=== PATIENT | female | born 1935 | race Caucasian/White ===

== ENCOUNTER 2023-03-01 20:29 | Emergency (ER) | payer OTHER, MEDICARE ==
[2023-03-01 20:44] VITALS: BMI 23.4
[2023-03-01 22:49] LABS: BASO % 0.6 % (0-2.0); EOS % 1.8 % (0-4.5); HEMATOCRIT 39.1 % (32.4-45.2); HEMOGLOBIN 13.2 GM/dL (10.7-15.3); LYMPH % 20.9 % (8-40); MCH 31.3 pg (25.7-33.7); MCHC 33.7 g/dl (32.0-36.0); MEAN CELL VOLUME 92.6 fl (80-96); MEAN PLT VOLUME 8.7 fl (7.5-11.1); MONO % 9.5 % (3.8-10.2); NEUT % 67.2 % (42.8-82.8); PLATELET COUNT 252 10^3/uL (134-434); RBC 4.22 M/mm3 (3.60-5.2); RDW 14.6 % (11.6-15.6); WHITE BLOOD COUNT 9.2 K/mm3 (4.0-10.0)
[2023-03-01 22:55] LABS: INR 0.92 (0.83-1.09); PROTHROMBIN TIME (PATIENT) 10.7 SEC (9.7-13.0)
[2023-03-01 22:58] LABS: ACTIVATED PTT 24.7 SECONDS (25.2-36.5)
[2023-03-01 23:11] LABS: POTASSIUM 3.8 mmol/L (3.5-5.1)
[2023-03-01 23:13] LABS: CALCIUM 9.2 mg/dL (8.5-10.1)
[2023-03-01 23:14] LABS: ALBUMIN 3.6 g/dl (3.4-5.0)
[2023-03-01 23:17] LABS: CREATININE 1.5 mg/dL (0.55-1.3)
[2023-03-01 23:19] LABS: BILIRUBIN,TOTAL 0.4 mg/dL (0.2-1); TOT PROT 7.1 g/dl (6.4-8.2)
[2023-03-01] MEDS ORDERED: SODIUM CHLORIDE 1,000 ML IV STA (23:55)
[2023-03-02 07:47] VITALS: TEMP 98.1
[2023-03-02 07:55] VITALS: BP 150/86; PULSE 89; RESP 14
[2023-03-02] MEDS ORDERED: FERROUS SO4 325 MG TABLET (FP) PO ONE (08:00)
[2023-03-02] MEDS ORDERED: lamoTRIgine 25 MG TABLET PO ONE (08:01)
[2023-03-02] MEDS ORDERED: ATENOLOL 50 MG TABLET (FP) PO ONE (08:02)
[2023-03-02] MEDS ORDERED: ATENOLOL 50 MG TABLET (FP) ONE (08:20)
[2023-03-02] MEDS ORDERED: lamoTRIgine 25 MG TABLET ONE (08:21)
[2023-03-02] MEDS ORDERED: FUROSEMIDE 20 MG TABLET (FP) PO ONE (08:26)
[2023-03-02] MEDS ORDERED: FUROSEMIDE 20 MG TABLET (FP) ONE (09:26)
[2023-03-02] MEDS ORDERED: ASPIRIN COATED 81 MG TABLET.EC PO SCH (10:00)
== END 2023-03-02 09:30 | disposition home or self-care (01) ==
LOC: JER 20:29
PROC: 3E0337Z Introduction of Electrolytic and Water Balance Substance into Peripheral Vein, Percutaneous Approach (ICD-10-PCS; principal; 2023-03-02)
DX: Z04.3 Encounter for examination and observation following other accident (principal); W18.11XA Fall from or off toilet without subsequent striking against object, initial encounter; Y93.E1 Activity, personal bathing and showering; Y92.121 Bathroom in nursing home as the place of occurrence of the external cause
CPT/HCPCS: 36415; 70450-TC; 71045-TC-FY; 72125-TC; 72170-TC-FY; 80053; 84484; 85025; 85610; 85730; 93005; 93010; 99285-25

== ENCOUNTER 2023-10-04 15:44 | Inpatient (IN) | payer OTHER, MEDICARE ==
[2023-10-04 17:25] LABS: VENOUS BASE EXCESS -6.7 mmol/L (-2-2); VENOUS O2 SATURATION 43.5 % (70-80); VENOUS PCO2 44.6 mmHg (38-52); VENOUS PH 7.264 (7.310-7.410)
[2023-10-04 17:28] LABS: HEMATOCRIT 21.2 % (32.4-45.2); MCH 30.3 pg (25.7-33.7); MEAN CELL VOLUME 97.7 fl (80-96); PLATELET COUNT 192 10^3/uL (134-434); RBC 2.17 M/mm3 (3.60-5.2); RDW 14.4 % (11.6-15.6); WHITE BLOOD COUNT 19.2 K/mm3 (4.0-10.0)
[2023-10-04] MEDS: SODIUM CHLORIDE 0.9% 500 ML INFUS.BAG IV ONE (17:30)
[2023-10-04 17:38] LABS: INR 1.03 (0.83-1.09)
[2023-10-04 17:39] LABS: HEMOGLOBIN 6.6 GM/dL (10.7-15.3)
[2023-10-04 17:41] LABS: ACTIVATED PTT 18.5 SECONDS (25.2-36.5)
[2023-10-04 18:04] LABS: POTASSIUM 4.1 mmol/L (3.5-5.1)
[2023-10-04 18:06] LABS: CALCIUM 8.5 mg/dL (8.5-10.1)
[2023-10-04 18:07] LABS: ALBUMIN 2.4 g/dl (3.4-5.0); BLOOD UREA NITROGEN 82.1 mg/dL (7-18)
[2023-10-04 18:10] LABS: CREATININE 1.8 mg/dL (0.55-1.3)
[2023-10-04 18:12] LABS: BILIRUBIN,TOTAL 0.3 mg/dL (0.2-1); TOT PROT 5.5 g/dl (6.4-8.2)
[2023-10-04 18:22] LABS: LACTIC ACID 8.2 mmol/L (0.4-2.0)
[2023-10-04 18:26] LABS: EPI CELLS 15 /uL (0-25.1); HYALINE CASTS 1 /uL (0-3.1); PH,URINE 5.5 (5.0-8.0); URINE APPEARANCE CLEAR; URINE BACTERIA >9,000 /uL (0-1359); URINE BILIRUBIN NEGATIVE (NEGATIVE); URINE COLOR YELLOW; URINE GLUCOSE (UA) NEGATIVE (NEGATIVE); URINE KETONE NEGATIVE (NEGATIVE); URINE LEUK ESTERASE TRACE (NEGATIVE); URINE NITRITE NEGATIVE (NEGATIVE); URINE PROTEIN NEGATIVE (NEGATIVE); URINE RBC 11 /uL (0-23.9); URINE UROBILINOGEN 0.2 mg/dL (0.2-1.0); URINE WBC 73 /uL (0-25.8)
[2023-10-04 18:36] LABS: ANISOCYTOSIS 1+; MACROCYTOSIS 1+; OVALOCYTE 1+
[2023-10-04 18:39] LABS: PLATELET ESTIMATE ADEQUATE
[2023-10-04] MEDS ORDERED: ONDANSETRON 4 MG/2 ML VIAL IVPUSH PRN (20:58)
[2023-10-05] MEDS ORDERED: CEFTRIAXONE 1 GM/50 ML BAG ONE (00:40)
[2023-10-05] MEDS ORDERED: PANTOPRAZOLE SODIUM 40 MG VIAL ONE (00:40)
[2023-10-05] MEDS: PANTOPRAZOLE SODIUM 40 MG VIAL IVPUSH SCH (00:45)
[2023-10-05] MEDS: CEFTRIAXONE 1,000 MG in DEXTROSE 5%-WATER - 50 ML IVPB ONE (00:46)
[2023-10-05] MEDS ORDERED: D5-1/2NS+10 MEQ KCL - 10 MEQ/1,000 ML INFUS.BAG IV SCH (07:00)
[2023-10-05] MEDS: levETIRAcetam 500 MG/5 ML INJECTION VIAL IVPB SCH (08:12)
[2023-10-05] MEDS: D5-1/2NS+10 MEQ KCL - 10 MEQ/1,000 ML INFUS.BAG IV SCH (08:12)
[2023-10-05] MEDS: VANCOMYCIN 1,000 MG in DEXTROSE 5%-WATER - 250 ML IVPB ONE (08:18)
[2023-10-05] MEDS: POTASSIUM CHLORIDE 10 MEQ in DEXTROSE 5%-NORMAL SALINE 1,000 ML IVPB SCH (08:18)
[2023-10-05] MEDS: PIPERACILLIN/TAZOB 4.5 GM 4.5 GM in DEXTROSE 5%-WATER 100 ML IVPB ONE (08:18)
[2023-10-05] MEDS ORDERED: lamoTRIgine 25 MG TABLET PO SCH (10:00)
[2023-10-05] MEDS ORDERED: PANTOPRAZOLE SODIUM 40 MG VIAL IVPB SCH (10:54)
[2023-10-05] MEDS: ACETAMINOPHEN 1000 MG/100 ML BAG IVPB PRN (11:28)
[2023-10-05 11:57] LABS: HEMATOCRIT 28.4 % (32.4-45.2); HEMOGLOBIN 9.6 GM/dL (10.7-15.3); MCH 29.3 pg (25.7-33.7); MCHC 33.8 g/dl (32.0-36.0); MEAN CELL VOLUME 86.6 fl (80-96); MEAN PLT VOLUME 9.4 fl (7.5-11.1); PLATELET COUNT 138 10^3/uL (134-434); RBC 3.28 M/mm3 (3.60-5.2); RDW 16.3 % (11.6-15.6); WHITE BLOOD COUNT 27.1 K/mm3 (4.0-10.0)
[2023-10-05 12:17] LABS: POTASSIUM 3.3 mmol/L (3.5-5.1)
[2023-10-05 12:21] LABS: CALCIUM 8.7 mg/dL (8.5-10.1)
[2023-10-05 12:22] LABS: ALBUMIN 2.6 g/dl (3.4-5.0); BLOOD UREA NITROGEN 80.6 mg/dL (7-18)
[2023-10-05 12:25] LABS: CREATININE 1.5 mg/dL (0.55-1.3)
[2023-10-05 12:27] LABS: BILIRUBIN,TOTAL 0.7 mg/dL (0.2-1); TOT PROT 5.5 g/dl (6.4-8.2)
[2023-10-05 12:40] LABS: ANISOCYTOSIS 0; HELMET CELLS 0; HOWELL-JOLLY BODIES 0; MACROCYTOSIS 0; OVALOCYTE 0; ROULEAU 0; SICKELED CELLS 0; TARGET CELLS 0; TEAR DROP CELLS 0; TOXIC GRANULATION 0
[2023-10-05] MEDS: KCL 10 MEQ IVPB 10 MEQ/100 ML INFUS.BAG IVPB SCH (12:40)
[2023-10-05] MEDS: DEXTROSE 5%-WATER - 1,000 ML IV SCH ×3 (12:40→17:03)
[2023-10-05] MEDS: PANTOPRAZOLE SODIUM 160 MG in SODIUM CHLORIDE 290 ML IVPB SCH (13:27)
[2023-10-05] MEDS ORDERED: PIPERACILLIN/TAZOBACTAM 2.25 GM VIAL IVPB ONE (13:27)
[2023-10-05] MEDS: PIPERACILLIN/TAZOB 2.25 GM 2.25 GM in DEXTROSE 5%-WATER - 50 ML IVPB SCH (13:28)
[2023-10-05 19:04] LABS: HEMATOCRIT 25.5 % (32.4-45.2); HEMOGLOBIN 8.3 GM/dL (10.7-15.3); MCH 28.3 pg (25.7-33.7); MCHC 32.5 g/dl (32.0-36.0); MEAN CELL VOLUME 87.1 fl (80-96); MEAN PLT VOLUME 8.7 fl (7.5-11.1); PLATELET COUNT 129 10^3/uL (134-434); RBC 2.93 M/mm3 (3.60-5.2); RDW 16.3 % (11.6-15.6); WHITE BLOOD COUNT 25.1 K/mm3 (4.0-10.0)
[2023-10-05 20:14] LABS: ANISOCYTOSIS 1+; MACROCYTOSIS 1+; OVALOCYTE 1+
[2023-10-05 20:16] LABS: PLATELET ESTIMATE SLT DECREASE
[2023-10-06] MEDS: KCL 10 MEQ IVPB 10 MEQ/100 ML INFUS.BAG IVPB SCH ×2 (06:17→12:51)
[2023-10-06 09:27] LABS: BASO % 0.2 % (0-2.0); EOS % 1.9 % (0-4.5); HEMATOCRIT 22.2 % (32.4-45.2); HEMOGLOBIN 7.3 GM/dL (10.7-15.3); LYMPH % 5.8 % (8-40); MCH 28.7 pg (25.7-33.7); MCHC 33.1 g/dl (32.0-36.0); MEAN CELL VOLUME 86.8 fl (80-96); MONO % 6.3 % (3.8-10.2); NEUT % 85.8 % (42.8-82.8); PLATELET COUNT 119 10^3/uL (134-434); RBC 2.55 M/mm3 (3.60-5.2); RDW 17.3 % (11.6-15.6); WHITE BLOOD COUNT 18.4 K/mm3 (4.0-10.0)
[2023-10-06 09:55] LABS: POTASSIUM 3.5 mmol/L (3.5-5.1)
[2023-10-06] MEDS ORDERED: PANTOPRAZOLE SODIUM 40 MG VIAL IVPB SCH (10:00)
[2023-10-06 10:05] LABS: CALCIUM 7.7 mg/dL (8.5-10.1)
[2023-10-06 10:06] LABS: CREATININE 1.6 mg/dL (0.55-1.3); MAGNESIUM 1.8 mg/dL (1.8-2.4); PHOSPHOROUS 2.7 mg/dL (2.5-4.9)
[2023-10-06 10:09] LABS: BLOOD UREA NITROGEN 54.4 mg/dL (7-18)
[2023-10-06] MEDS: MAGNESIUM SULF 50% (8.12 MEQ/2 ML-1 GM VIAL) IVPB ONE (11:30)
[2023-10-06] MEDS: IRON SUCROSE INJECTION 300 MG in SODIUM CHLORIDE 235 ML IVPB ONE (11:43)
[2023-10-06] MEDS: ERTAPENEM SODIUM 0.5 GM in SODIUM CHLORIDE 50 ML IVPB SCH (13:27)
[2023-10-06 15:20] VITALS: BMI 21.4
[2023-10-07 09:27] LABS: INR 0.97 (0.83-1.09); PROTHROMBIN TIME (PATIENT) 11.3 SEC (9.7-13.0)
[2023-10-07 09:28] LABS: BASO % 0.3 % (0-2.0); EOS % 5.7 % (0-4.5); HEMATOCRIT 30.8 % (32.4-45.2); HEMOGLOBIN 10.2 GM/dL (10.7-15.3); LYMPH % 6.3 % (8-40); MCH 28.4 pg (25.7-33.7); MCHC 33.3 g/dl (32.0-36.0); MEAN CELL VOLUME 85.2 fl (80-96); MEAN PLT VOLUME 9.1 fl (7.5-11.1); MONO % 7.4 % (3.8-10.2); NEUT % 80.3 % (42.8-82.8); PLATELET COUNT 135 10^3/uL (134-434); RBC 3.61 M/mm3 (3.60-5.2); RDW 17.9 % (11.6-15.6); WHITE BLOOD COUNT 16.3 K/mm3 (4.0-10.0)
[2023-10-07 09:46] LABS: POTASSIUM 3.3 mmol/L (3.5-5.1)
[2023-10-07 09:57] LABS: ALBUMIN 2.3 g/dl (3.4-5.0)
[2023-10-07 10:00] LABS: CREATININE 1.4 mg/dL (0.55-1.3)
[2023-10-07 10:01] LABS: TOT PROT 5.2 g/dl (6.4-8.2)
[2023-10-07 10:02] LABS: BILIRUBIN,TOTAL 0.6 mg/dL (0.2-1)
[2023-10-07 10:18] LABS: BLOOD UREA NITROGEN 27.5 mg/dL (7-18)
[2023-10-07] MEDS: KCL 10 MEQ IVPB 10 MEQ/100 ML INFUS.BAG IVPB SCH (11:32)
[2023-10-07] MEDS: IRON SUCROSE INJECTION 200 MG in SODIUM CHLORIDE 100 ML IVPB ONE ×2 (12:31→13:47)
[2023-10-07 14:03] LABS: N-TERMINAL BNP 6501.9 pg/ml (5-450)
[2023-10-07] MEDS: HEPARIN NA (PORCINE) 5,000 UNITS/ML 1ML VIAL SQ SCH (22:56)
[2023-10-08] MEDS: IRON SUCROSE INJECTION 200 MG in SODIUM CHLORIDE 100 ML IVPB ONE (09:39)
[2023-10-08 09:42] LABS: BASO % 0.4 % (0-2.0); EOS % 3.8 % (0-4.5); HEMOGLOBIN 10.9 GM/dL (10.7-15.3); LYMPH % 8.5 % (8-40); MCH 28.7 pg (25.7-33.7); MEAN CELL VOLUME 84.4 fl (80-96); MEAN PLT VOLUME 8.8 fl (7.5-11.1); MONO % 7.6 % (3.8-10.2); NEUT % 79.7 % (42.8-82.8); PLATELET COUNT 182 10^3/uL (134-434); RBC 3.79 M/mm3 (3.60-5.2); RDW 17.7 % (11.6-15.6); WHITE BLOOD COUNT 13.7 K/mm3 (4.0-10.0)
[2023-10-08 10:00] LABS: POTASSIUM 3.2 mmol/L (3.5-5.1)
[2023-10-08 10:06] LABS: CALCIUM 8.4 mg/dL (8.5-10.1)
[2023-10-08 10:07] LABS: BLOOD UREA NITROGEN 13.1 mg/dL (7-18)
[2023-10-08 10:10] LABS: CREATININE 1.1 mg/dL (0.55-1.3)
[2023-10-08] MEDS: KCL 10 MEQ IVPB 10 MEQ/100 ML INFUS.BAG IVPB SCH (12:19)
[2023-10-08] MEDS: DEXTROSE 5%-WATER - 1,000 ML IV SCH (12:20)
[2023-10-08] MEDS: PANTOPRAZOLE 40 MG TABLET PO SCH (12:20)
[2023-10-09 08:30] LABS: HEMATOCRIT 34.4 % (32.4-45.2); HEMOGLOBIN 11.3 GM/dL (10.7-15.3); MCH 28.2 pg (25.7-33.7); MCHC 32.8 g/dl (32.0-36.0); MEAN CELL VOLUME 85.8 fl (80-96); MEAN PLT VOLUME 8.7 fl (7.5-11.1); PLATELET COUNT 218 10^3/uL (134-434); RBC 4.01 M/mm3 (3.60-5.2); RDW 16.8 % (11.6-15.6); WHITE BLOOD COUNT 12.4 K/mm3 (4.0-10.0)
[2023-10-09 08:55] LABS: POTASSIUM 3.5 mmol/L (3.5-5.1)
[2023-10-09 08:58] LABS: CALCIUM 8.4 mg/dL (8.5-10.1)
[2023-10-09 08:59] LABS: BLOOD UREA NITROGEN 11.2 mg/dL (7-18)
[2023-10-09 09:37] LABS: ANISOCYTOSIS 0; HELMET CELLS 0; HOWELL-JOLLY BODIES 0; MACROCYTOSIS 0; OVALOCYTE 0; ROULEAU 0; SICKELED CELLS 0; TARGET CELLS 0; TEAR DROP CELLS 0; TOXIC GRANULATION 0
[2023-10-09] MEDS: lamoTRIgine 25 MG TABLET PO SCH (11:22)
[2023-10-10 09:07] LABS: HEMATOCRIT 32.5 % (32.4-45.2); HEMOGLOBIN 10.7 GM/dL (10.7-15.3); MCH 28.6 pg (25.7-33.7); MCHC 32.9 g/dl (32.0-36.0); MEAN CELL VOLUME 87.1 fl (80-96); MEAN PLT VOLUME 8.8 fl (7.5-11.1); PLATELET COUNT 231 10^3/uL (134-434); RBC 3.73 M/mm3 (3.60-5.2); RDW 17.5 % (11.6-15.6); WHITE BLOOD COUNT 14.3 K/mm3 (4.0-10.0)
[2023-10-10 09:25] LABS: POTASSIUM 3.6 mmol/L (3.5-5.1)
[2023-10-10] MEDS: PANTOPRAZOLE SOD 40 MG SUSPENSION PACKET PO SCH (09:26)
[2023-10-10 09:28] LABS: BLOOD UREA NITROGEN 14.4 mg/dL (7-18)
[2023-10-10 09:31] LABS: CREATININE 1.3 mg/dL (0.55-1.3)
[2023-10-10 09:41] LABS: ANISOCYTOSIS 0; MACROCYTOSIS 0
[2023-10-11 10:41] LABS: HEMATOCRIT 34.1 % (32.4-45.2); HEMOGLOBIN 11.3 GM/dL (10.7-15.3); MCH 28.8 pg (25.7-33.7); MCHC 33.3 g/dl (32.0-36.0); MEAN CELL VOLUME 86.7 fl (80-96); MEAN PLT VOLUME 8.5 fl (7.5-11.1); PLATELET COUNT 280 10^3/uL (134-434); RBC 3.93 M/mm3 (3.60-5.2); RDW 17.4 % (11.6-15.6); WHITE BLOOD COUNT 12.1 K/mm3 (4.0-10.0)
[2023-10-11 11:11] LABS: POTASSIUM 3.9 mmol/L (3.5-5.1)
[2023-10-11 11:17] LABS: CALCIUM 8.4 mg/dL (8.5-10.1)
[2023-10-11 11:18] LABS: ALBUMIN 2.1 g/dl (3.4-5.0); BLOOD UREA NITROGEN 14.6 mg/dL (7-18)
[2023-10-11 11:21] LABS: CREATININE 1.2 mg/dL (0.55-1.3)
[2023-10-11 11:22] LABS: BILIRUBIN,TOTAL 0.3 mg/dL (0.2-1); TOT PROT 5.4 g/dl (6.4-8.2)
[2023-10-11 11:56] LABS: ANISOCYTOSIS 0; MACROCYTOSIS 0
[2023-10-12 09:00] LABS: HEMATOCRIT 33.9 % (32.4-45.2); HEMOGLOBIN 11.1 GM/dL (10.7-15.3); MCH 28.4 pg (25.7-33.7); MCHC 32.6 g/dl (32.0-36.0); MEAN CELL VOLUME 87.1 fl (80-96); MEAN PLT VOLUME 8.3 fl (7.5-11.1); PLATELET COUNT 321 10^3/uL (134-434); RBC 3.89 M/mm3 (3.60-5.2); RDW 17.2 % (11.6-15.6); WHITE BLOOD COUNT 11.6 K/mm3 (4.0-10.0)
[2023-10-12 09:20] LABS: POTASSIUM 4.2 mmol/L (3.5-5.1)
[2023-10-12 09:21] LABS: CALCIUM 8.8 mg/dL (8.5-10.1)
[2023-10-12 09:22] LABS: BLOOD UREA NITROGEN 12.8 mg/dL (7-18)
[2023-10-12 09:25] LABS: CREATININE 1.1 mg/dL (0.55-1.3)
[2023-10-12 10:13] LABS: ANISOCYTOSIS 3+; MACROCYTOSIS 0
[2023-10-13 02:04] VITALS: RESP 18
[2023-10-13] MEDS ORDERED: ACETAMINOPHEN 325 MG TABLET (FP) PO PRN (13:20)
[2023-10-13] MEDS: NYSTATIN POWDER 100,000 UNITS/GM - 15 GM TOPICAL POWDER TP SCH (14:38)
[2023-10-14 06:12] VITALS: BP 149/78; PULSE 78; TEMP 97.7
== END 2023-10-14 11:48 | disposition home or self-care (01) | DRG 871 ==
LOC: JER 15:44 → JERBED 19:38 → J8W 10-05 02:44
PROVIDERS: ADMIT Internal Medicine; ATTEND Internal Medicine
PROC: 30233N1 Transfusion of Nonautologous Red Blood Cells into Peripheral Vein, Percutaneous Approach (ICD-10-PCS; principal; 2023-10-05)
DX: A41.51 Sepsis due to Escherichia coli [E. coli] (principal); R53.2 Functional quadriplegia; K92.2 Gastrointestinal hemorrhage, unspecified; N39.0 Urinary tract infection, site not specified; E87.20 Acidosis, unspecified; E87.0 Hyperosmolality and hypernatremia; I24.89 Other forms of acute ischemic heart disease; F03.90 Unspecified dementia, unspecified severity, without behavioral disturbance, psychotic disturbance, mood disturbance, and anxiety; I12.9 Hypertensive chronic kidney disease with stage 1 through stage 4 chronic kidney disease, or unspecified chronic kidney disease; N18.9 Chronic kidney disease, unspecified; G40.909 Epilepsy, unspecified, not intractable, without status epilepticus; E78.5 Hyperlipidemia, unspecified; F32.A Depression, unspecified; D64.9 Anemia, unspecified; D50.9 Iron deficiency anemia, unspecified; E86.0 Dehydration; E87.6 Hypokalemia; D69.6 Thrombocytopenia, unspecified; E83.42 Hypomagnesemia; Z95.0 Presence of cardiac pacemaker; E88.09 Other disorders of plasma-protein metabolism, not elsewhere classified
CPT/HCPCS: 0241U-QW; 36415; 36430; 36511; 71045-TC-FY; 80048; 80053; 80061; 81003; 82272; 82728; 82803; 83036; 83540; 83550; 83605; 83735; 83880; 84100; 84443; 84484; 85025; 85045; 85610; 85730; 86140; 86900; 86922; 87040; 87086; 87186; 87324; 87449; 93005; 93010; 93306-TC; 97116-GP; 97161-GP; 99284-25; J0131; J1644; J1756; P9038; P9058

== ENCOUNTER 2023-12-24 19:02 | Inpatient (IN) | payer OTHER, MEDICARE ==
[2023-12-24 19:58] VITALS: BMI 20.5
[2023-12-24 21:31] LABS: BASO % 0.6 % (0-2.0); EOS % 5.1 % (0-4.5); HEMATOCRIT 38.4 % (32.4-45.2); HEMOGLOBIN 12.6 GM/dL (10.7-15.3); LYMPH % 20.9 % (8-40); MCH 30.1 pg (25.7-33.7); MCHC 32.8 g/dl (32.0-36.0); MEAN CELL VOLUME 91.8 fl (80-96); MEAN PLT VOLUME 7.9 fl (7.5-11.1); MONO % 7.5 % (3.8-10.2); NEUT % 65.9 % (42.8-82.8); PLATELET COUNT 297 10^3/uL (134-434); RBC 4.18 M/mm3 (3.60-5.2); RDW 16.1 % (11.6-15.6); WHITE BLOOD COUNT 12.7 K/mm3 (4.0-10.0)
[2023-12-24 21:34] LABS: VENOUS BASE EXCESS 10.2 mmol/L (-2-2); VENOUS O2 SATURATION 16.2 % (70-80); VENOUS PH 7.455 (7.310-7.410)
[2023-12-24 21:37] LABS: INR 0.93 (0.83-1.09); PROTHROMBIN TIME (PATIENT) 10.5 SEC (9.7-13.0)
[2023-12-24 21:40] LABS: ACTIVATED PTT 27.5 SECONDS (25.2-36.5)
[2023-12-24 21:51] LABS: CALCIUM 9.7 mg/dL (8.5-10.1)
[2023-12-24 21:52] LABS: ALBUMIN 3.2 g/dl (3.4-5.0); BLOOD UREA NITROGEN 37.5 mg/dL (7-18); MAGNESIUM 2.3 mg/dL (1.8-2.4)
[2023-12-24 21:55] LABS: CREATININE 1.6 mg/dL (0.55-1.3)
[2023-12-24 21:56] LABS: BILIRUBIN,TOTAL 0.4 mg/dL (0.2-1)
[2023-12-24 21:57] LABS: TOT PROT 7.4 g/dl (6.4-8.2)
[2023-12-24] MEDS: SODIUM CHLORIDE 0.9% 1000 ML INFUS.BAG IV ONE (22:03)
[2023-12-24 22:07] LABS: EPI CELLS 15 /uL (0-25.1); HYALINE CASTS 1 /uL (0-3.1); PH,URINE 6.5 (5.0-8.0); URINE APPEARANCE CLOUDY; URINE BACTERIA 4854 /uL (0-1359); URINE BILIRUBIN NEGATIVE (NEGATIVE); URINE COLOR YELLOW; URINE GLUCOSE (UA) NEGATIVE (NEGATIVE); URINE KETONE NEGATIVE (NEGATIVE); URINE LEUK ESTERASE TRACE (NEGATIVE); URINE NITRITE NEGATIVE (NEGATIVE); URINE PROTEIN NEGATIVE (NEGATIVE); URINE RBC 4 /uL (0-23.9); URINE UROBILINOGEN 0.2 mg/dL (0.2-1.0); URINE WBC 19 /uL (0-25.8)
[2023-12-25] MEDS: CEFTRIAXONE 1 GM in DEXTROSE 5%-WATER - 100 ML IVPB ONE (00:36)
[2023-12-25] MEDS: AZITHROMYCIN IVPB 500 MG in DEXTROSE 5%-WATER - 250 ML IVPB ONE (00:36)
[2023-12-25] MEDS: PANTOPRAZOLE SODIUM 40 MG VIAL IVPUSH SCH (00:36)
[2023-12-25] MEDS ORDERED: PANTOPRAZOLE SODIUM 40 MG VIAL ONE (00:38)
[2023-12-25] MEDS ORDERED: AZITHROMYCIN IVPB 500 MG/250 ML BAG IVPB ONE (00:38)
[2023-12-25] MEDS ORDERED: CEFTRIAXONE 1 GM/50 ML BAG ONE (00:38)
[2023-12-25] MEDS: HEPARIN NA (PORCINE) 5,000 UNITS/ML 1ML VIAL SQ SCH (00:51)
[2023-12-25] MEDS: D5-1/2NS+10 MEQ KCL - 10 MEQ/1,000 ML INFUS.BAG IV SCH ×2 (00:52→13:16)
[2023-12-25] MEDS ORDERED: ACETAMINOPHEN 1000 MG/100 ML BAG IVPB PRN (00:54)
[2023-12-25] MEDS: PANTOPRAZOLE SOD 40 MG SUSPENSION PACKET PO SCH (02:51)
[2023-12-25 06:24] LABS: BASO % 0.6 % (0-2.0); EOS % 5.1 % (0-4.5); HEMATOCRIT 36.4 % (32.4-45.2); HEMOGLOBIN 12.1 GM/dL (10.7-15.3); LYMPH % 18.3 % (8-40); MCH 30.4 pg (25.7-33.7); MCHC 33.2 g/dl (32.0-36.0); MEAN CELL VOLUME 91.6 fl (80-96); MEAN PLT VOLUME 8.6 fl (7.5-11.1); MONO % 7.3 % (3.8-10.2); NEUT % 68.7 % (42.8-82.8); PLATELET COUNT 294 10^3/uL (134-434); RBC 3.97 M/mm3 (3.60-5.2); WHITE BLOOD COUNT 14.3 K/mm3 (4.0-10.0)
[2023-12-25 06:37] LABS: POTASSIUM 3.4 mmol/L (3.5-5.1)
[2023-12-25 06:39] LABS: CALCIUM 9.2 mg/dL (8.5-10.1); MAGNESIUM 2.1 mg/dL (1.8-2.4)
[2023-12-25 06:43] LABS: CREATININE 1.4 mg/dL (0.55-1.3)
[2023-12-25] MEDS: LOSARTAN POTASSIUM 50 MG TABLET PO ONE (13:12)
[2023-12-25] MEDS: lamoTRIgine 25 MG TABLET PO SCH (13:13)
[2023-12-25] MEDS: KCL 10 MEQ IVPB 10 MEQ/100 ML INFUS.BAG IVPB SCH (13:14)
[2023-12-26 07:51] LABS: EOS % 4.9 % (0-4.5); HEMOGLOBIN 10.9 GM/dL (10.7-15.3); LYMPH % 25.8 % (8-40); MCH 31.3 pg (25.7-33.7); MEAN CELL VOLUME 91.8 fl (80-96); MEAN PLT VOLUME 8.4 fl (7.5-11.1); MONO % 8.1 % (3.8-10.2); NEUT % 60.2 % (42.8-82.8); PLATELET COUNT 259 10^3/uL (134-434); RBC 3.48 M/mm3 (3.60-5.2); RDW 15.8 % (11.6-15.6); WHITE BLOOD COUNT 10.9 K/mm3 (4.0-10.0)
[2023-12-26 08:10] LABS: CALCIUM 8.4 mg/dL (8.5-10.1)
[2023-12-26 08:11] LABS: BLOOD UREA NITROGEN 22.2 mg/dL (7-18)
[2023-12-26 08:14] LABS: CREATININE 1.3 mg/dL (0.55-1.3)
[2023-12-26] MEDS: LOSARTAN POTASSIUM 50 MG TABLET PO ONE (11:32)
[2023-12-26] MEDS: PIPERACILLIN/TAZOB 3.375 GM 3.375 GM in DEXTROSE 5%-WATER - 50 ML IVPB SCH (14:48)
[2023-12-26] MEDS: METOPROLOL TARTRATE 50 MG TABLET (FP) PO ONE (15:34)
[2023-12-26] MEDS: D5-1/2NS+10 MEQ KCL - 10 MEQ/1,000 ML INFUS.BAG IV SCH (15:35)
[2023-12-26] MEDS: LOSARTAN POTASSIUM 50 MG TABLET PO SCH (21:42)
[2023-12-27 08:26] LABS: BASO % 0.7 % (0-2.0); EOS % 5.8 % (0-4.5); HEMATOCRIT 32.5 % (32.4-45.2); LYMPH % 25.8 % (8-40); MCH 30.7 pg (25.7-33.7); MCHC 33.8 g/dl (32.0-36.0); MEAN CELL VOLUME 90.9 fl (80-96); MEAN PLT VOLUME 8.5 fl (7.5-11.1); MONO % 6.6 % (3.8-10.2); NEUT % 61.1 % (42.8-82.8); PLATELET COUNT 257 10^3/uL (134-434); RBC 3.58 M/mm3 (3.60-5.2); WHITE BLOOD COUNT 8.8 K/mm3 (4.0-10.0)
[2023-12-27 08:44] LABS: POTASSIUM 3.8 mmol/L (3.5-5.1)
[2023-12-27 08:50] LABS: CALCIUM 8.3 mg/dL (8.5-10.1)
[2023-12-27 08:54] LABS: CREATININE 1.4 mg/dL (0.55-1.3)
[2023-12-27] MEDS: PANTOPRAZOLE 40 MG TABLET PO SCH (09:51)
[2023-12-27] MEDS: NYSTATIN POWDER 100,000 UNITS/GM - 15 GM TOPICAL POWDER TP SCH (09:52)
[2023-12-28] MEDS: cloNIDine HCL 0.1 MG TABLET PO ONE (03:34)
[2023-12-28 08:11] LABS: POTASSIUM 3.9 mmol/L (3.5-5.1)
[2023-12-28 08:16] LABS: BASO % 0.8 % (0-2.0); EOS % 5.5 % (0-4.5); HEMATOCRIT 32.2 % (32.4-45.2); HEMOGLOBIN 10.9 GM/dL (10.7-15.3); LYMPH % 21.8 % (8-40); MCH 30.7 pg (25.7-33.7); MCHC 33.9 g/dl (32.0-36.0); MEAN CELL VOLUME 90.5 fl (80-96); MEAN PLT VOLUME 8.3 fl (7.5-11.1); MONO % 6.4 % (3.8-10.2); NEUT % 65.5 % (42.8-82.8); PLATELET COUNT 258 10^3/uL (134-434); RBC 3.56 M/mm3 (3.60-5.2); RDW 15.8 % (11.6-15.6); WHITE BLOOD COUNT 9.3 K/mm3 (4.0-10.0)
[2023-12-28 08:22] LABS: BLOOD UREA NITROGEN 15.5 mg/dL (7-18); CALCIUM 8.5 mg/dL (8.5-10.1)
[2023-12-28 08:26] LABS: CREATININE 1.4 mg/dL (0.55-1.3)
[2023-12-29 09:06] LABS: BASO % 0.4 % (0-2.0); EOS % 5.2 % (0-4.5); HEMOGLOBIN 12.2 GM/dL (10.7-15.3); LYMPH % 17.7 % (8-40); MCH 31.1 pg (25.7-33.7); MCHC 33.8 g/dl (32.0-36.0); MEAN PLT VOLUME 8.5 fl (7.5-11.1); MONO % 5.7 % (3.8-10.2); PLATELET COUNT 306 10^3/uL (134-434); RBC 3.91 M/mm3 (3.60-5.2); RDW 16.1 % (11.6-15.6); WHITE BLOOD COUNT 11.6 K/mm3 (4.0-10.0)
[2023-12-29 09:25] LABS: MAGNESIUM 1.8 mg/dL (1.8-2.4)
[2023-12-29 09:29] LABS: PHOSPHOROUS 3.1 mg/dL (2.5-4.9)
[2023-12-29 09:30] LABS: CREATININE 1.3 mg/dL (0.55-1.3)
[2023-12-29 09:33] LABS: N-TERMINAL BNP 830.8 pg/ml (5-450)
[2023-12-29] MEDS: MAGNESIUM SULF 50% (8.12 MEQ/2 ML-1 GM VIAL) IVPB ONE (11:27)
[2023-12-30 07:13] VITALS: RESP 18
[2023-12-30] MEDS: D5-1/2NS+10 MEQ KCL - 10 MEQ/1,000 ML INFUS.BAG IV SCH (13:16)
[2023-12-30 18:05] LABS: BASO % 0.2 % (0-2.0); EOS % 2.6 % (0-4.5); LYMPH % 8.4 % (8-40); MCH 30.3 pg (25.7-33.7); MCHC 33.3 g/dl (32.0-36.0); MEAN CELL VOLUME 91.1 fl (80-96); MEAN PLT VOLUME 8.2 fl (7.5-11.1); MONO % 6.3 % (3.8-10.2); NEUT % 82.5 % (42.8-82.8); PLATELET COUNT 286 10^3/uL (134-434); RBC 3.95 M/mm3 (3.60-5.2); RDW 16.3 % (11.6-15.6); WHITE BLOOD COUNT 16.7 K/mm3 (4.0-10.0)
[2023-12-30 18:34] LABS: POTASSIUM 3.2 mmol/L (3.5-5.1)
[2023-12-30 18:35] LABS: CALCIUM 8.9 mg/dL (8.5-10.1)
[2023-12-30 18:36] LABS: BLOOD UREA NITROGEN 13.3 mg/dL (7-18)
[2023-12-30 18:40] LABS: CREATININE 1.3 mg/dL (0.55-1.3)
[2023-12-30] MEDS: KCL 10 MEQ IVPB 10 MEQ/100 ML INFUS.BAG IVPB SCH (20:53)
[2023-12-31] MEDS ORDERED: ACETAMINOPHEN 325 MG TABLET (FP) PO PRN (02:59)
[2023-12-31 08:22] LABS: BASO % 0.3 % (0-2.0); EOS % 3.2 % (0-4.5); HEMATOCRIT 33.8 % (32.4-45.2); HEMOGLOBIN 11.5 GM/dL (10.7-15.3); LYMPH % 15.3 % (8-40); MCH 31.1 pg (25.7-33.7); MCHC 34.1 g/dl (32.0-36.0); MEAN CELL VOLUME 91.2 fl (80-96); MEAN PLT VOLUME 8.5 fl (7.5-11.1); NEUT % 72.2 % (42.8-82.8); PLATELET COUNT 275 10^3/uL (134-434); RBC 3.71 M/mm3 (3.60-5.2); RDW 16.1 % (11.6-15.6); WHITE BLOOD COUNT 12.2 K/mm3 (4.0-10.0)
[2023-12-31 08:30] LABS: POTASSIUM 3.9 mmol/L (3.5-5.1)
[2023-12-31 08:47] LABS: CALCIUM 8.8 mg/dL (8.5-10.1)
[2023-12-31 08:48] LABS: BLOOD UREA NITROGEN 14.9 mg/dL (7-18)
[2023-12-31] MEDS: LACTOBACILLUS ACIDOPHILUS 1 TABLET PO SCH (15:33)
[2023-12-31 23:55] VITALS: TEMP 98.4
[2024-01-01 06:53] VITALS: BP 169/73; PULSE 67
[2024-01-01 08:38] LABS: POTASSIUM 4.2 mmol/L (3.5-5.1)
[2024-01-01 08:41] LABS: CALCIUM 9.2 mg/dL (8.5-10.1)
[2024-01-01 08:42] LABS: BLOOD UREA NITROGEN 15.2 mg/dL (7-18); MAGNESIUM 1.9 mg/dL (1.8-2.4)
[2024-01-01 08:45] LABS: CREATININE 1.2 mg/dL (0.55-1.3); PHOSPHOROUS 3.4 mg/dL (2.5-4.9)
[2024-01-01 09:10] LABS: BASO % 0.8 % (0-2.0); EOS % 7.6 % (0-4.5); HEMATOCRIT 35.4 % (32.4-45.2); HEMOGLOBIN 11.7 GM/dL (10.7-15.3); LYMPH % 19.4 % (8-40); MCH 30.5 pg (25.7-33.7); MEAN CELL VOLUME 92.6 fl (80-96); MEAN PLT VOLUME 9.1 fl (7.5-11.1); MONO % 9.5 % (3.8-10.2); NEUT % 62.7 % (42.8-82.8); PLATELET COUNT 268 10^3/uL (134-434); RBC 3.83 M/mm3 (3.60-5.2); RDW 16.3 % (11.6-15.6); WHITE BLOOD COUNT 11.1 K/mm3 (4.0-10.0)
[2024-01-01] MEDS: LOPERAMIDE HCL 2 MG CAPSULE PO ONE (12:00)
== END 2024-01-01 12:30 | DRG 194 ==
LOC: JER 19:02 → JERBED 22:41 → J8W 12-25 08:59
PROVIDERS: ADMIT Internal Medicine; ATTEND Internal Medicine
DX: J18.9 Pneumonia, unspecified organism (principal); E87.1 Hypo-osmolality and hyponatremia; E87.20 Acidosis, unspecified; N39.0 Urinary tract infection, site not specified; N17.9 Acute kidney failure, unspecified; Z68.1 Body mass index [BMI] 19.9 or less, adult; B96.20 Unspecified Escherichia coli [E. coli] as the cause of diseases classified elsewhere; G40.909 Epilepsy, unspecified, not intractable, without status epilepticus; I12.9 Hypertensive chronic kidney disease with stage 1 through stage 4 chronic kidney disease, or unspecified chronic kidney disease; N18.9 Chronic kidney disease, unspecified; E78.5 Hyperlipidemia, unspecified; E86.0 Dehydration; F03.90 Unspecified dementia, unspecified severity, without behavioral disturbance, psychotic disturbance, mood disturbance, and anxiety; F32.A Depression, unspecified; R26.81 Unsteadiness on feet; R63.0 Anorexia; D50.9 Iron deficiency anemia, unspecified; D72.829 Elevated white blood cell count, unspecified; L30.8 Other specified dermatitis; E88.09 Other disorders of plasma-protein metabolism, not elsewhere classified; E77.8 Other disorders of glycoprotein metabolism; R19.7 Diarrhea, unspecified; Z95.0 Presence of cardiac pacemaker; Z74.01 Bed confinement status
CPT/HCPCS: 0241U-QW; 36415; 71045-TC-FY; 76775-TC; 76856-TC; 80048; 80053; 80061; 81003; 82803; 83036; 83735; 83880; 84100; 84439; 84443; 84484; 85025; 85610; 85651; 85730; 86140; 86850; 86900; 86901; 87040; 87086; 87186; 87324; 87449; 87635; 93005; 93010; 97116-GP; 97161-GP; 99285-25; J1644

== ENCOUNTER 2024-09-07 20:12 | Inpatient (IN) | payer MEDICARE, OTHER ==
[2024-09-07] MEDS: SODIUM CHLORIDE 0.9% 500 ML INFUS.BAG IV ONE ×2 (21:47→22:46)
[2024-09-07] MEDS: ACETAMINOPHEN 1000 MG/100 ML BAG IVPB ONE (21:47)
[2024-09-07 21:50] LABS: BASO % 0.5 % (0-2.0); EOS % 1.5 % (0-4.5); HEMATOCRIT 31.4 % (32.4-45.2); HEMOGLOBIN 10.1 GM/dL (10.7-15.3); LYMPH % 14.2 % (8-40); MEAN CELL VOLUME 93.6 fl (80-96); MEAN PLT VOLUME 8.1 fl (7.5-11.1); MONO % 8.7 % (3.8-10.2); NEUT % 75.1 % (42.8-82.8); PLATELET COUNT 369 10^3/uL (134-434); RBC 3.36 M/mm3 (3.60-5.2); RDW 16.7 % (11.6-15.6); WHITE BLOOD COUNT 15.9 K/mm3 (4.0-10.0)
[2024-09-07] MEDS ORDERED: ACETAMINOPHEN INJECTION 100 ML ONE (21:50)
[2024-09-07 21:52] LABS: VENOUS BASE EXCESS -0.5 mmol/L (-2-2); VENOUS O2 SATURATION 34.7 % (70-80); VENOUS PCO2 54.3 mmHg (38-52); VENOUS PH 7.305 (7.310-7.410)
[2024-09-07 21:56] LABS: INR 1.4 (0.83-1.09); PROTHROMBIN TIME (PATIENT) 15.4 SEC (9.7-13.0)
[2024-09-07 21:59] LABS: ACTIVATED PTT 30.7 SECONDS (25.2-36.5)
[2024-09-07 22:08] LABS: POTASSIUM 4.1 mmol/L (3.5-5.1)
[2024-09-07 22:10] LABS: CALCIUM 9.4 mg/dL (8.5-10.1)
[2024-09-07 22:11] LABS: ALBUMIN 3.1 g/dl (3.4-5.0); BLOOD UREA NITROGEN 19.6 mg/dL (7-18); MAGNESIUM 2.1 mg/dL (1.8-2.4)
[2024-09-07 22:15] LABS: CREATININE 1.6 mg/dL (0.55-1.3)
[2024-09-07 22:16] LABS: BILIRUBIN,TOTAL 0.6 mg/dL (0.2-1)
[2024-09-07 22:17] LABS: TOT PROT 6.8 g/dl (6.4-8.2)
[2024-09-07 22:27] LABS: EPI CELLS 7 /uL (0-25.1); HYALINE CASTS 1 /uL (0-3.1); PH,URINE 6.5 (5.0-8.0); URINE APPEARANCE CLOUDY; URINE BACTERIA >9,000 /uL (0-1359); URINE BILIRUBIN NEGATIVE (NEGATIVE); URINE COLOR YELLOW; URINE GLUCOSE (UA) NEGATIVE (NEGATIVE); URINE KETONE NEGATIVE (NEGATIVE); URINE LEUK ESTERASE 3+ (NEGATIVE); URINE NITRITE POSITIVE (NEGATIVE); URINE PROTEIN 1+ (NEGATIVE); URINE RBC 31 /uL (0-23.9); URINE UROBILINOGEN 0.2 mg/dL (0.2-1.0); URINE WBC 553 /uL (0-25.8)
[2024-09-07] MEDS: PIPERACILLIN/TAZOB 4.5 GM 4.5 GM in DEXTROSE 5%-WATER 100 ML IVPB ONE (22:41)
[2024-09-07 22:42] LABS: LACTIC ACID 5.6 mmol/L (0.4-2.0)
[2024-09-07] MEDS: THIAMINE HCL 200 MG/2 ML VIAL IVPB ONE (22:46)
[2024-09-07] MEDS ORDERED: THIAMINE HCL 200 MG/2 ML VIAL ONE (22:49)
[2024-09-08 01:39] LABS: LACTIC ACID 3.4 mmol/L (0.4-2.0)
[2024-09-08] MEDS: D5-1/2NS+20 MEQ KCL - 20 MEQ/1,000 ML INFUS.BAG IV SCH ×3 (02:40→16:35)
[2024-09-08 06:06] LABS: POTASSIUM 3.4 mmol/L (3.5-5.1)
[2024-09-08 06:08] LABS: CALCIUM 8.4 mg/dL (8.5-10.1)
[2024-09-08 06:11] LABS: CREATININE 1.5 mg/dL (0.55-1.3)
[2024-09-08 06:16] LABS: N-TERMINAL BNP 1779.8 pg/ml (5-450)
[2024-09-08 08:52] LABS: BASO % 0.5 % (0-2.0); HEMOGLOBIN 7.8 GM/dL (10.7-15.3); LYMPH % 7.4 % (8-40); MCH 30.7 pg (25.7-33.7); MCHC 32.7 g/dl (32.0-36.0); MEAN CELL VOLUME 93.8 fl (80-96); MEAN PLT VOLUME 8.2 fl (7.5-11.1); NEUT % 83.1 % (42.8-82.8); PLATELET COUNT 320 10^3/uL (134-434); RBC 2.56 M/mm3 (3.60-5.2); RDW 15.9 % (11.6-15.6); WHITE BLOOD COUNT 11.2 K/mm3 (4.0-10.0)
[2024-09-08] MEDS ORDERED: metoPROLOL SUCCINATE 25 MG TAB.SR.24H (FP) PO SCH (10:00)
[2024-09-08] MEDS: LACTOBACILLUS ACIDOPHILUS 1 TABLET PO SCH (11:16)
[2024-09-08] MEDS: lamoTRIgine 25 MG TABLET PO SCH (11:16)
[2024-09-08] MEDS: IRON SUCROSE INJECTION 300 MG in SODIUM CHLORIDE 235 ML IVPB ONE ×2 (11:16→14:06)
[2024-09-08] MEDS: PANTOPRAZOLE 40 MG TABLET PO SCH (11:16)
[2024-09-08] MEDS: APIXABAN 5 MG TABLET PO SCH (11:16)
[2024-09-08] MEDS: CHOLECALCIFEROL (VIT D3) 1,000 UNIT (25 MCG) TABLET PO SCH (11:16)
[2024-09-08] MEDS: LOSARTAN POTASSIUM 50 MG TABLET PO SCH (11:16)
[2024-09-08] MEDS: TAMSULOSIN HCL 0.4 MG CAP PO SCH (11:16)
[2024-09-08] MEDS: POTASSIUM CHLORIDE ORAL LIQUID 20 MEQ/15 ML PO ONE (12:50)
[2024-09-08] MEDS ORDERED: IRON SUCROSE INJECTION 300 MG in SODIUM CHLORIDE 250 ML IVPB ONE (14:00)
[2024-09-08] MEDS: ATORVASTATIN CA 20 MG TABLET (FP) PO SCH (21:59)
[2024-09-08] MEDS: MIRTAZAPINE 15 MG TABLET (FP) PO SCH (21:59)
[2024-09-09 09:20] LABS: BASO % 0.6 % (0-2.0); EOS % 2.2 % (0-4.5); HEMATOCRIT 25.1 % (32.4-45.2); HEMOGLOBIN 8.1 GM/dL (10.7-15.3); LYMPH % 13.7 % (8-40); MCHC 32.1 g/dl (32.0-36.0); MEAN CELL VOLUME 93.4 fl (80-96); MEAN PLT VOLUME 8.5 fl (7.5-11.1); MONO % 9.9 % (3.8-10.2); NEUT % 73.6 % (42.8-82.8); PLATELET COUNT 336 10^3/uL (134-434); RBC 2.69 M/mm3 (3.60-5.2); RDW 16.1 % (11.6-15.6); WHITE BLOOD COUNT 6.6 K/mm3 (4.0-10.0)
[2024-09-09 09:43] LABS: POTASSIUM 3.9 mmol/L (3.5-5.1)
[2024-09-09] MEDS: IRON SUCROSE INJECTION 300 MG in SODIUM CHLORIDE 250 ML IVPB ONE (10:00)
[2024-09-09 10:16] LABS: BLOOD UREA NITROGEN 16.1 mg/dL (7-18); CALCIUM 8.4 mg/dL (8.5-10.1)
[2024-09-09 10:20] LABS: CREATININE 1.5 mg/dL (0.55-1.3)
[2024-09-09] MEDS: ERTAPENEM SODIUM 0.5 GM in SODIUM CHLORIDE 50 ML IVPB SCH (14:43)
[2024-09-10 08:59] LABS: BASO % 0.7 % (0-2.0); EOS % 2.3 % (0-4.5); HEMATOCRIT 25.4 % (32.4-45.2); HEMOGLOBIN 8.2 GM/dL (10.7-15.3); LYMPH % 19.7 % (8-40); MCH 30.4 pg (25.7-33.7); MCHC 32.4 g/dl (32.0-36.0); MEAN CELL VOLUME 93.7 fl (80-96); MEAN PLT VOLUME 8.3 fl (7.5-11.1); MONO % 12.5 % (3.8-10.2); NEUT % 64.8 % (42.8-82.8); PLATELET COUNT 361 10^3/uL (134-434); RBC 2.71 M/mm3 (3.60-5.2); RDW 15.9 % (11.6-15.6); WHITE BLOOD COUNT 7.2 K/mm3 (4.0-10.0)
[2024-09-10 09:20] LABS: CALCIUM 8.3 mg/dL (8.5-10.1)
[2024-09-10 09:24] LABS: CREATININE 1.3 mg/dL (0.55-1.3)
[2024-09-11 08:54] LABS: BASO % 1.1 % (0-2.0); EOS % 2.9 % (0-4.5); HEMATOCRIT 24.7 % (32.4-45.2); HEMOGLOBIN 8.1 GM/dL (10.7-15.3); LYMPH % 18.4 % (8-40); MCH 30.5 pg (25.7-33.7); MCHC 32.7 g/dl (32.0-36.0); MEAN CELL VOLUME 93.2 fl (80-96); MEAN PLT VOLUME 8.1 fl (7.5-11.1); MONO % 11.2 % (3.8-10.2); NEUT % 66.4 % (42.8-82.8); PLATELET COUNT 378 10^3/uL (134-434); RBC 2.65 M/mm3 (3.60-5.2); RDW 16.2 % (11.6-15.6); WHITE BLOOD COUNT 7.9 K/mm3 (4.0-10.0)
[2024-09-11] MEDS ORDERED: POLYETHYLENE GLYCOL (HEALTHYLAX) 3350 17 GM PACKET PO SCH ×2 (17:00→22:00)
[2024-09-11] MEDS: SENNOSIDES/DOCUSATE COMBO (SENNA PLUS) TABLET (UD) PO SCH (18:13)
[2024-09-11] MEDS: DOCUSATE NA 100 MG/10 ML UNIT-DOSE CUPS PO SCH (18:17)
[2024-09-11] MEDS: IRON POLYSACCHARIDES 150 MG CAPSULE PO SCH (18:17)
[2024-09-11] MEDS: SENNOSIDES 8.6MG TABLET (FP) PO SCH (18:17)
[2024-09-11] MEDS ORDERED: DOCUSATE SODIUM 100 MG CAPSULE (FP) PO SCH (22:00)
[2024-09-12 09:31] LABS: EOS % 2.7 % (0-4.5); HEMOGLOBIN 8.9 GM/dL (10.7-15.3); MCHC 32.8 g/dl (32.0-36.0); MEAN CELL VOLUME 94.4 fl (80-96); MEAN PLT VOLUME 8.3 fl (7.5-11.1); MONO % 9.3 % (3.8-10.2); PLATELET COUNT 422 10^3/uL (134-434); RBC 2.86 M/mm3 (3.60-5.2); RDW 15.8 % (11.6-15.6)
[2024-09-12 11:08] VITALS: RESP 18
[2024-09-13 08:57] LABS: BASO % 0.6 % (0-2.0); EOS % 3.4 % (0-4.5); HEMATOCRIT 26.4 % (32.4-45.2); HEMOGLOBIN 8.9 GM/dL (10.7-15.3); LYMPH % 14.4 % (8-40); MCH 31.5 pg (25.7-33.7); MCHC 33.9 g/dl (32.0-36.0); MEAN PLT VOLUME 8.6 fl (7.5-11.1); MONO % 9.6 % (3.8-10.2); PLATELET COUNT 432 10^3/uL (134-434); RBC 2.83 M/mm3 (3.60-5.2); RDW 16.3 % (11.6-15.6)
[2024-09-13 10:58] LABS: BASO % 0.7 % (0-2.0); EOS % 2.2 % (0-4.5); HEMOGLOBIN 9.5 GM/dL (10.7-15.3); MCH 30.5 pg (25.7-33.7); MCHC 32.8 g/dl (32.0-36.0); MEAN CELL VOLUME 93.1 fl (80-96); MEAN PLT VOLUME 7.9 fl (7.5-11.1); MONO % 9.1 % (3.8-10.2); PLATELET COUNT 432 10^3/uL (134-434); RBC 3.12 M/mm3 (3.60-5.2); RDW 15.9 % (11.6-15.6); WHITE BLOOD COUNT 9.8 K/mm3 (4.0-10.0)
[2024-09-13 11:28] LABS: POTASSIUM 4.1 mmol/L (3.5-5.1)
[2024-09-13 11:30] LABS: CALCIUM 9.2 mg/dL (8.5-10.1)
[2024-09-13 11:31] LABS: BLOOD UREA NITROGEN 26.9 mg/dL (7-18)
[2024-09-13 11:34] LABS: CREATININE 1.5 mg/dL (0.55-1.3)
[2024-09-13 16:04] VITALS: BMI 16.9
[2024-09-14 08:38] LABS: HEMATOCRIT 26.8 % (32.4-45.2); HEMOGLOBIN 8.5 GM/dL (10.7-15.3); MCH 30.1 pg (25.7-33.7); MCHC 31.7 g/dl (32.0-36.0); MEAN CELL VOLUME 94.9 fl (80-96); PLATELET COUNT 420 10^3/uL (134-434); RBC 2.83 M/mm3 (3.60-5.2); RDW 16.3 % (11.6-15.6)
[2024-09-14] MEDS: MINERAL OIL ENEMA 133 ML ENEMA RC ONE (16:03)
[2024-09-14] MEDS: BISACODYL 10 MG SUPP.RECT PR ONE (16:36)
[2024-09-15 09:42] LABS: BASO % 0.6 % (0-2.0); EOS % 2.4 % (0-4.5); HEMATOCRIT 26.8 % (32.4-45.2); HEMOGLOBIN 8.6 GM/dL (10.7-15.3); MCH 30.5 pg (25.7-33.7); MEAN CELL VOLUME 95.2 fl (80-96); MEAN PLT VOLUME 8.2 fl (7.5-11.1); PLATELET COUNT 350 10^3/uL (134-434); RBC 2.82 M/mm3 (3.60-5.2); RDW 16.2 % (11.6-15.6); WHITE BLOOD COUNT 11.1 K/mm3 (4.0-10.0)
[2024-09-15] MEDS: ACETAMINOPHEN 325 MG TABLET (FP) PO PRN (11:32)
[2024-09-15 22:58] VITALS: PULSE 70
[2024-09-16 09:41] LABS: BASO % 0.9 % (0-2.0); EOS % 2.8 % (0-4.5); HEMATOCRIT 27.2 % (32.4-45.2); LYMPH % 13.5 % (8-40); MCH 31.1 pg (25.7-33.7); MCHC 33.1 g/dl (32.0-36.0); MEAN PLT VOLUME 8.2 fl (7.5-11.1); MONO % 6.5 % (3.8-10.2); NEUT % 76.3 % (42.8-82.8); PLATELET COUNT 370 10^3/uL (134-434); RBC 2.89 M/mm3 (3.60-5.2); RDW 16.6 % (11.6-15.6); WHITE BLOOD COUNT 8.5 K/mm3 (4.0-10.0)
[2024-09-16 14:04] VITALS: BP 129/71; TEMP 97.6
== END 2024-09-16 19:00 | disposition home or self-care (01) | DRG 689 ==
LOC: JER 20:12 → JERBED 22:37 → OBSVTOIN 09-08 02:06 → J8W 09-08 05:58
PROVIDERS: ADMIT Internal Medicine; ATTEND Internal Medicine
DX: N39.0 Urinary tract infection, site not specified (principal); R53.2 Functional quadriplegia; E87.20 Acidosis, unspecified; G40.909 Epilepsy, unspecified, not intractable, without status epilepticus; E86.0 Dehydration; F03.90 Unspecified dementia, unspecified severity, without behavioral disturbance, psychotic disturbance, mood disturbance, and anxiety; I12.9 Hypertensive chronic kidney disease with stage 1 through stage 4 chronic kidney disease, or unspecified chronic kidney disease; N18.9 Chronic kidney disease, unspecified; D50.0 Iron deficiency anemia secondary to blood loss (chronic); E87.6 Hypokalemia; L89.156 Pressure-induced deep tissue damage of sacral region; L89.221 Pressure ulcer of left hip, stage 1
CPT/HCPCS: 0241U-QW; 36415; 70450-TC; 71045-TC-FY; 80048; 80053; 81003; 82272; 82728; 82803; 83540; 83550; 83605; 83735; 83880; 84484; 85025; 85610; 85730; 86850; 86900; 86901; 87040; 87086; 87186; 93005; 93010; 97116-GP; 97161-GP; 99285-25; G0378; J0131; J1756